=== PATIENT | female | born 1960 | race Caucasian/White ===

== ENCOUNTER 2019-08-28 13:51 | Emergency (ER) | payer OTHER, SELFPAY ==
[~2019-08-28] VITALS: Ht 162.6 cm; Wt 76.2 kg
[2019-08-28 14:16] VITALS: Ht 162.6 cm; Wt 76.2 kg
[2019-08-28 14:40] VITALS: BP 128/75
== END 2019-08-28 14:40 | disposition home or self-care (01) ==
LOC: ED 13:51
DX: U07.1 COVID-19 (principal); B34.9 Viral infection, unspecified
CPT/HCPCS: 87804; U0003-CS